=== PATIENT | female | born 1990 | race Caucasian/White ===

== ENCOUNTER → 2017-02-16 | Outpatient (CLI) | payer OTHER ==
[2017-02-16 08:05] LABS: BLOOD UREA NITROGEN 14 mg/dL (7-18)
[2017-02-16 08:12] LABS: HEMOGLOBIN 14.7 g/dL (11.7-16.4)
[2017-02-16 08:32] LABS: ASPARTATE AMINO TRANSFERASE 8 U/L (15-37)
[2017-02-17 11:06] LABS: THYROGLOBULIN AB <1.0 IU/mL (0.0-0.9); THYROID PEROXIDASE (TPO) AB 21 IU/mL (0-34)
== END | disposition home or self-care (01) ==
LOC: LAB 07:26
PROVIDERS: ATTEND Obstetrics & Gynecology
DX: F41.1 Generalized anxiety disorder (principal); Z20.2 Contact with and (suspected) exposure to infections with a predominantly sexual mode of transmission; E34.9 Endocrine disorder, unspecified; N94.3 Premenstrual tension syndrome; E78.5 Hyperlipidemia, unspecified; R53.83 Other fatigue; R10.9 Unspecified abdominal pain; E55.9 Vitamin D deficiency, unspecified; Z79.899 Other long term (current) drug therapy
CPT/HCPCS: 36415; 80053; 80061; 82150; 82306; 82533; 82607; 82627; 82670; 82746; 83001; 83002; 83036; 83525; 83690; 84144; 84439; 84443; 84481; 85025; 86376; 86696; 86800

== ENCOUNTER → 2017-03-15 | Outpatient (CLI) | payer OTHER | END | disposition home or self-care (01) | LOC: CFH 08:34 | PROVIDERS: ATTEND Physician Assistant Medical | DX: N93.0 Postcoital and contact bleeding (principal); R11.0 Nausea; N39.0 Urinary tract infection, site not specified | CPT/HCPCS: 76700; 76830 ==

== ENCOUNTER 2017-05-26 06:55 | Day surgery (SDC) | payer OTHER ==
[~2017-05-26] VITALS: Ht 160 cm; Wt 75.0 kg
[~2017-05-26 06:55] MED LIST: AMOX1TAB64 PO; CETI10TA18 PO; LORA0.5T PO; ONDA4TAB13 SL; PANT40TA5 PO; SERT25TA PO
[2017-05-26] MEDS ORDERED: LACTATED RINGERS 1,000 ML IV SCH (07:22)
[2017-05-26 07:27] VITALS: BP 120/86
[2017-05-26] MEDS ORDERED: LIDOCAINE 1%, 2ML ONE (07:46)
[2017-05-26] MEDS ORDERED: LIDOCAINE 1%, 2ML SQ PRN (08:00)
[2017-05-26] MEDS ORDERED: MIDAZOLAM 1 MG/ML, 2ML ONE (08:00)
[2017-05-26] MEDS ORDERED: FENTANYL PF 250 MCG/5ML ONE (08:00)
[2017-05-26] MEDS ORDERED: THROMBIN 5,000 UNIT VIAL TP ONE (08:20)
[2017-05-26] MEDS ORDERED: BUPIVACAINE/PF 0.5% ONE (08:20)
[2017-05-26] MEDS ORDERED: VASOPRESSIN 20 UNIT/ML, 1ML ONE (08:21)
[2017-05-26] MEDS ORDERED: DEXAMETHASONE 4 MG/ML, 1ML ONE (08:53)
[2017-05-26] MEDS ORDERED: METOCLOPRAMIDE 5 MG/ML, 2ML ONE (08:53)
[2017-05-26] MEDS ORDERED: CEFAZOLIN 1,000 MG ONE (08:53)
[2017-05-26] MEDS ORDERED: SUCCINYLCHOLINE 20 MG/ML, 10ML ONE (08:53)
[2017-05-26] MEDS ORDERED: KETOROLAC 30 MG/1 ML ONE (08:53)
[2017-05-26] MEDS ORDERED: PROPOFOL 10 MG/ML, 20ML ONE (08:53)
[2017-05-26] MEDS ORDERED: ONDANSETRON 2MG/ML, 2ML ONE (08:53)
[2017-05-26] MEDS ORDERED: OXYcodone 5 MG/5 ML ORAL.SOL UDC PO PRN (09:30)
[2017-05-26] MEDS ORDERED: MIDAZOLAM 1 MG/ML, 2ML IV PRN (09:30)
[2017-05-26] MEDS ORDERED: ONDANSETRON 2MG/ML, 2ML IVPush PRN (09:30)
[2017-05-26] MEDS ORDERED: MEPERIDINE/PF 25MG/0.5ML IVPush PRN (09:30)
[2017-05-26] MEDS ORDERED: HYDROmorphone 1 MG/ML, 1ML IV PRN (09:30)
[2017-05-26] MEDS ORDERED: LABETALOL 5MG/ML, 20ML IV PRN (09:30)
[2017-05-26] MEDS ORDERED: ALBUTEROL/IPRATROPIUM 2.5MG/0.5MG, 3 ML NPPB PRN (09:30)
[2017-05-26] MEDS ORDERED: FENTANYL PF 100 MCG/2ML IV PRN (09:30)
[2017-05-26] MEDS ORDERED: ACETAMINOPHEN 325 MG TABLET PO PRN (09:30)
[2017-05-26] MEDS ORDERED: ACETAMINOPHEN 650 MG/20.3 ML UDC ONE (10:09)
[2017-05-26] MEDS ORDERED: PROMETHAZINE 25 MG/ML, 1ML ONE (10:09)
[2017-05-26] MEDS ORDERED: FENTANYL PF 100 MCG/2ML ONE (10:09)
[2017-05-26] MEDS ORDERED: OXYcodone 5 MG/5 ML ORAL.SOL UDC ONE (10:10)
[2017-05-26] MEDS: PROMETHAZINE 25 MG/ML, 1ML IV PRN ×2 (10:14→10:44)
== END 2017-05-26 12:30 ==
LOC: OUT 06:55
PROVIDERS: ATTEND Obstetrics & Gynecology
DX: D06.0 Carcinoma in situ of endocervix (principal); K21.9 Gastro-esophageal reflux disease without esophagitis; J45.909 Unspecified asthma, uncomplicated; I25.10 Atherosclerotic heart disease of native coronary artery without angina pectoris; F41.9 Anxiety disorder, unspecified
CPT/HCPCS: 36415; 57522; 81003; 84703; 85025; 88305; J0330; J0690; J1100; J1885; J2250; J2405; J2550; J2704; J2765; J3010; J3490; J7120

== ENCOUNTER 2017-05-28 15:41 | Emergency (ER) | payer OTHER ==
[~2017-05-28] VITALS: Ht 160 cm; Wt 76.2 kg
[2017-05-28] MEDS ORDERED: BUTA1CAP57 PO (16:18)
[2017-05-28] MEDS ORDERED: CYCL-259 PO (16:18)
[2017-05-28 16:45] LABS: ASPARTATE AMINO TRANSFERASE 12 U/L (15-37); BLOOD UREA NITROGEN 12 mg/dL (7-18)
[2017-05-28 17:22] VITALS: BP 124/86
== END 2017-05-28 17:24 | disposition home or self-care (01) ==
LOC: ED 17:07
DX: K59.00 Constipation, unspecified (principal); Z87.891 Personal history of nicotine dependence
CPT/HCPCS: 36415; 74020; 80053; 81003; 83690; 84703; 85025; 99285

== ENCOUNTER 2017-06-05 12:30 | Emergency (ER) | payer OTHER ==
[~2017-06-05] VITALS: Ht 160 cm; Wt 76.4 kg
[~2017-06-05 12:30] MED LIST changes: +BUTA1CAP57 PO; +CYCL-259 PO
[2017-06-05] MEDS ORDERED: SODIUM CHLORIDE 0.9% 1,000ML IVBOLUS ONE (13:00)
[2017-06-05 13:28] LABS: ASPARTATE AMINO TRANSFERASE 11 U/L (15-37); BLOOD UREA NITROGEN 7 mg/dL (7-18)
[2017-06-05] MEDS ORDERED: SODIUM CHLORIDE FLUSH 10ML SYR IVF ONE (16:00)
[2017-06-05] MEDS ORDERED: OMNIPAQUE 350 MG/ML, 100ML BOTTLE ONE (16:45)
[2017-06-05 17:17] VITALS: BP 113/67
== END 2017-06-05 17:20 | disposition home or self-care (01) ==
LOC: ED 17:10
DX: K62.5 Hemorrhage of anus and rectum (principal); Z87.891 Personal history of nicotine dependence
CPT/HCPCS: 36415; 74177; 80053; 83690; 85025; 96360; 99285; J7030; Q9967

== ENCOUNTER 2017-06-08 06:54 | Day surgery (SDC) | payer OTHER ==
[~2017-06-08] VITALS: Ht 170.2 cm; Wt 76.0 kg
[2017-06-08] MEDS ORDERED: LORA1TAB46 PO (07:28)
[2017-06-08] MEDS ORDERED: FENTANYL PF 100 MCG/2ML ONE (07:48)
[2017-06-08] MEDS ORDERED: MIDAZOLAM 1 MG/ML, 2ML ONE (07:49)
[2017-06-08 08:01] VITALS: BP 135/97
[2017-06-08] MEDS ORDERED: OXYMETAZOLINE NASAL SPRAY 0.05%, 15ML ONE (08:01)
[2017-06-08] MEDS ORDERED: LACTATED RINGERS 1,000 ML IV SCH (08:03)
[2017-06-08] MEDS ORDERED: PROPOFOL 10 MG/ML, 20ML ONE (08:10)
[2017-06-08] MEDS ORDERED: KETOROLAC 30 MG/1 ML ONE (08:10)
[2017-06-08 08:24] LABS: HCG UR OBC PASS
[2017-06-08] MEDS ORDERED: ACETAMINOPHEN 650 MG/20.3 ML UDC ONE (08:33)
[2017-06-08] MEDS ORDERED: ACETAMINOPHEN 325 MG TABLET ONE (08:33)
[2017-06-08] MEDS ORDERED: ACETAMINOPHEN 325 MG TABLET PO PRN (09:00)
== END 2017-06-08 10:20 ==
LOC: OUT 06:54
PROVIDERS: ATTEND Internal Medicine Gastroenterology
DX: K29.50 Unspecified chronic gastritis without bleeding (principal); K21.0 Gastro-esophageal reflux disease with esophagitis; K25.9 Gastric ulcer, unspecified as acute or chronic, without hemorrhage or perforation; J45.909 Unspecified asthma, uncomplicated; F41.9 Anxiety disorder, unspecified
CPT/HCPCS: 43239; 81025; 88305; J1885; J2250; J2704; J3010; J7120

== ENCOUNTER → 2017-08-30 | Outpatient (CLI) | payer OTHER ==
[~2017-08-30] MED LIST changes: +LORA1TAB46 PO
== END | disposition home or self-care (01) ==
LOC: CFH 08:20
PROVIDERS: ATTEND Family Medicine Sports Medicine
DX: M47.896 Other spondylosis, lumbar region (principal); M47.897 Other spondylosis, lumbosacral region; M51.27 Other intervertebral disc displacement, lumbosacral region; M48.07 Spinal stenosis, lumbosacral region
CPT/HCPCS: 72148

== ENCOUNTER → 2017-11-08 | Outpatient (CLI) | payer OTHER ==
[2017-11-08 07:41] LABS: HEMATOCRIT 41.9 % (34.6-47.8); HEMOGLOBIN 14.4 g/dL (11.7-16.4); WHITE BLOOD COUNT 6.1 x10^3/uL (3.4-10)
[2017-11-08 07:49] LABS: BLOOD UREA NITROGEN 10 mg/dL (7-18)
[2017-11-08 07:59] LABS: ASPARTATE AMINO TRANSFERASE 18 U/L (15-37)
== END | disposition home or self-care (01) ==
LOC: LAB 07:26
PROVIDERS: ATTEND Nurse Practitioner Family
DX: Z00.00 Encounter for general adult medical examination without abnormal findings (principal); R53.83 Other fatigue; R79.89 Other specified abnormal findings of blood chemistry
CPT/HCPCS: 36415; 80053; 80061; 84439; 84443; 84481; 85025

== ENCOUNTER 2018-01-06 16:42 | Emergency (ER) | payer OTHER ==
[~2018-01-06] VITALS: Ht 160 cm; Wt 82.9 kg
[2018-01-06 17:29] LABS: MICROSCOPIC NOT IND
[2018-01-06 17:32] LABS: CULTURE INDICATED? NO
[2018-01-06] MEDS ORDERED: KETOROLAC 30 MG/1 ML ONE (17:48)
[2018-01-06] MEDS ORDERED: SODIUM CHLORIDE FLUSH 10ML SYR IVF ONE (18:00)
[2018-01-06] MEDS ORDERED: ONDANSETRON 2MG/ML, 2ML IVPush ONE (18:00)
[2018-01-06] MEDS ORDERED: HYDROmorphone 1 MG/ML, 1ML IVPush PRN (18:00)
[2018-01-06] MEDS ORDERED: KETOROLAC 30 MG/1 ML IVPush ONE (18:00)
[2018-01-06 18:14] LABS: BASOPHILS # (AUTO) 0.04 x10^3/uL (0-0.1); BASOPHILS % (AUTO) 0 % (0-1); EOSINOPHILS # (AUTO) 0.32 x10^3/uL (0-0.4); EOSINOPHILS % (AUTO) 4 % (1-7); LYMPHOCYTES # (AUTO) 2.83 x10^3/uL (1-3.4); LYMPHOCYTES % (AUTO) 33 % (22-44); MD NO; MEAN CORPUSCULAR HEMOGLOBIN 31.9 pg (27.0-34.8); MEAN CORPUSCULAR HGB CONC 34.6 g/dL (32.4-35.8); MEAN PLATELET VOLUME 6.9 fL (7.4-10.4); MONOCYTES # (AUTO) 0.55 x10^3/uL (0.2-0.8); MONOCYTES % (AUTO) 6 % (2-9); NEUTROPHILS # (AUTO) 4.77 x10^3/uL (1.8-6.8); NEUTROPHILS % (AUTO) 56 % (42-75); PLATELET COUNT 246 x10^3/uL (130-400); RED BLOOD COUNT 4.43 x10^6/uL (3.82-5.3); RED CELL DISTRIBUTION WIDTH 12.6 % (9.6-15.2)
[2018-01-06 18:27] LABS: ALBUMIN 4.1 g/dL (3.4-5.0); ANION GAP 5 mmol/L (5-15); CALCIUM 9.3 mg/dL (8.5-10.1); CHLORIDE 107 mmol/L (98-107)
[2018-01-06 18:33] LABS: CREATININE 0.62 mg/dL (0.55-1.02)
[2018-01-06 18:45] VITALS: BP 128/80
== END 2018-01-06 19:29 | disposition home or self-care (01) ==
LOC: ED 17:55
DX: M54.5 Low back pain (principal); F41.9 Anxiety disorder, unspecified; K21.9 Gastro-esophageal reflux disease without esophagitis
CPT/HCPCS: 36415; 74176; 80048; 81003; 82040; 84703; 85025; 96374; 99285; J1885

== ENCOUNTER → 2018-04-05 | Outpatient (CLI) | payer OTHER | END | disposition home or self-care (01) | LOC: CFH 14:40 | PROVIDERS: ATTEND Nurse Practitioner | DX: M50.33 Other cervical disc degeneration, cervicothoracic region (principal); M51.36 Other intervertebral disc degeneration, lumbar region | CPT/HCPCS: 72050; 72110 ==

== ENCOUNTER 2018-04-30 07:49 | Emergency (ER) | payer OTHER ==
[~2018-04-30] VITALS: Ht 162.6 cm; Wt 84.6 kg
[2018-04-30] MEDS ORDERED: IBUPROFEN 200 MG TABLET PO ONE (08:30)
[2018-04-30] MEDS ORDERED: ACETAMINOPHEN 325 MG TABLET PO ONE (08:30)
[2018-04-30] MEDS ORDERED: ACETAMINOPHEN 325 MG TABLET ONE (08:45)
[2018-04-30] MEDS ORDERED: IBUPROFEN 200 MG TABLET ONE (08:45)
[2018-04-30 08:52] VITALS: BP 122/64
== END 2018-04-30 09:37 | disposition home or self-care (01) ==
LOC: ED 09:31
DX: J20.8 Acute bronchitis due to other specified organisms (principal); J31.0 Chronic rhinitis; J02.9 Acute pharyngitis, unspecified; J45.909 Unspecified asthma, uncomplicated
CPT/HCPCS: 71046; 99284

== ENCOUNTER → 2018-05-09 | Outpatient (CLI) | payer OTHER | END | disposition home or self-care (01) | LOC: CFH 09:44 | PROVIDERS: ATTEND Internal Medicine Cardiovascular Disease | DX: J45.909 Unspecified asthma, uncomplicated (principal) | CPT/HCPCS: 93306 ==

== ENCOUNTER 2018-06-25 13:15 | Emergency (ER) | payer OTHER ==
[~2018-06-25] VITALS: Ht 162.6 cm; Wt 84.0 kg
[2018-06-25] MEDS ORDERED: SODIUM CHLORIDE 0.9% 1,000 ML IV ONE (13:24)
[2018-06-25] MEDS ORDERED: MECLIZINE CHEWABLE 25 MG TAB PO ONE (13:30)
[2018-06-25] MEDS ORDERED: MECLIZINE CHEWABLE 25 MG TAB ONE (14:35)
[2018-06-25 14:41] LABS: MICROSCOPIC NOT IND
[2018-06-25 14:45] LABS: BASOPHILS # (AUTO) 0.04 x10^3/uL (0-0.1); BASOPHILS % (AUTO) 1 % (0-1); EOSINOPHILS % (AUTO) 5 % (1-7); LYMPHOCYTES # (AUTO) 3.33 x10^3/uL (1-3.4); LYMPHOCYTES % (AUTO) 40 % (22-44); MD NO; MEAN CORPUSCULAR HEMOGLOBIN 31.5 pg (27.0-34.8); MEAN CORPUSCULAR HGB CONC 34.6 g/dL (32.4-35.8); MEAN PLATELET VOLUME 6.9 fL (7.4-10.4); MONOCYTES % (AUTO) 7 % (2-9); NEUTROPHILS % (AUTO) 48 % (42-75); PLATELET COUNT 252 x10^3/uL (130-400); RED BLOOD COUNT 4.71 x10^6/uL (3.82-5.3); RED CELL DISTRIBUTION WIDTH 13.4 % (9.6-15.2)
[2018-06-25 14:47] LABS: CULTURE INDICATED? NO
[2018-06-25 14:52] LABS: ALANINE AMINOTRANSFERASE 24 U/L (12-78); ALBUMIN 4.1 g/dL (3.4-5.0); ANION GAP 9 mmol/L (5-15); CALCIUM 8.9 mg/dL (8.5-10.1); CHLORIDE 106 mmol/L (98-107); CREATININE 0.82 mg/dL (0.55-1.02)
[2018-06-25 14:56] LABS: ALKALINE PHOSPHATASE 87 U/L (45-117); BILIRUBIN,TOTAL 0.5 mg/dL (0.2-1.0); TOTAL PROTEIN 7.9 g/dL (6.4-8.2)
[2018-06-25] MEDS ORDERED: ONDANSETRON ODT 8 MG PO ONE (16:00)
[2018-06-25] MEDS ORDERED: ONDANSETRON ODT 8 MG ONE (16:14)
[2018-06-25 16:18] VITALS: BP 116/77
== END 2018-06-25 16:31 | disposition home or self-care (01) ==
LOC: ED 15:52
DX: R42 Dizziness and giddiness (principal); K21.9 Gastro-esophageal reflux disease without esophagitis; J45.909 Unspecified asthma, uncomplicated; H53.9 Unspecified visual disturbance; R53.83 Other fatigue
CPT/HCPCS: 36415; 80053; 81003; 84703; 85025; 93005; 96360; 96361; 99285; J7030; Q0162

== ENCOUNTER 2018-07-04 17:52 | Emergency (ER) | payer OTHER ==
[~2018-07-04] VITALS: Ht 160 cm; Wt 82.0 kg
[2018-07-04 18:59] LABS: BASOPHILS # (AUTO) 0.06 x10^3/uL (0-0.1); BASOPHILS % (AUTO) 1 % (0-1); EOSINOPHILS # (AUTO) 0.19 x10^3/uL (0-0.4); EOSINOPHILS % (AUTO) 3 % (1-7); LYMPHOCYTES # (AUTO) 3.04 x10^3/uL (1-3.4); LYMPHOCYTES % (AUTO) 43 % (22-44); MD NO; MEAN CORPUSCULAR HEMOGLOBIN 31.5 pg (27.0-34.8); MEAN CORPUSCULAR HGB CONC 34.8 g/dL (32.4-35.8); MEAN CORPUSCULAR VOLUME 90.4 fL (80-100); MEAN PLATELET VOLUME 6.9 fL (7.4-10.4); MONOCYTES # (AUTO) 0.57 x10^3/uL (0.2-0.8); MONOCYTES % (AUTO) 8 % (2-9); NEUTROPHILS # (AUTO) 3.23 x10^3/uL (1.8-6.8); NEUTROPHILS % (AUTO) 46 % (42-75); PLATELET COUNT 293 x10^3/uL (130-400); RED BLOOD COUNT 4.85 x10^6/uL (3.82-5.3); RED CELL DISTRIBUTION WIDTH 13.1 % (9.6-15.2)
[2018-07-04 19:07] LABS: ANION GAP 6 mmol/L (5-15); CALCIUM 9.6 mg/dL (8.5-10.1); CHLORIDE 107 mmol/L (98-107); CREATININE 0.81 mg/dL (0.55-1.02)
[2018-07-04 19:08] LABS: ALANINE AMINOTRANSFERASE 24 U/L (12-78); ALBUMIN 4.3 g/dL (3.4-5.0)
[2018-07-04 19:12] LABS: ALKALINE PHOSPHATASE 85 U/L (45-117); BILIRUBIN,TOTAL 0.3 mg/dL (0.2-1.0)
[2018-07-04] MEDS ORDERED: OMNIPAQUE 350 MG/ML, 100ML BOTTLE ONE (20:30)
[2018-07-04] MEDS ORDERED: DIPHENHYDRAMINE 50 MG/ML, 1ML ONE (20:39)
[2018-07-04] MEDS ORDERED: METOCLOPRAMIDE 5 MG/ML, 2ML ONE (20:39)
[2018-07-04] MEDS ORDERED: SODIUM CHLORIDE 0.9% 1,000ML IVBOLUS ONE (21:00)
[2018-07-04] MEDS ORDERED: METOCLOPRAMIDE 5 MG/ML, 2ML IVPush ONE (21:00)
[2018-07-04] MEDS ORDERED: DIPHENHYDRAMINE 50 MG/ML, 1ML IVPush ONE (21:00)
[2018-07-04] MEDS ORDERED: SODIUM CHLORIDE FLUSH 10ML SYR IVF ONE (21:00)
[2018-07-04] MEDS ORDERED: LORazepam 2 MG/ML, 1ML ONE (21:11)
[2018-07-04] MEDS ORDERED: LORazepam 2 MG/ML, 1ML IVPush STA (21:14)
[2018-07-04] MEDS ORDERED: LORazepam 2 MG/ML, 1ML IVPush ONE (21:30)
[2018-07-04 22:26] VITALS: BP 117/71
== END 2018-07-04 22:28 | disposition home or self-care (01) ==
LOC: ED 20:22
DX: G43.019 Migraine without aura, intractable, without status migrainosus (principal); J45.909 Unspecified asthma, uncomplicated; G89.29 Other chronic pain; M54.5 Low back pain; K21.9 Gastro-esophageal reflux disease without esophagitis; R42 Dizziness and giddiness
CPT/HCPCS: 36415; 70450; 70498; 80053; 84703; 85025; 96361; 96374; 96375; 99285; J1200; J2060; J2765; J7030; Q9967

== ENCOUNTER → 2018-08-27 | Outpatient (CLI) | payer OTHER | END | disposition home or self-care (01) | LOC: CARD 08:01 | PROVIDERS: ATTEND Psychiatry & Neurology Neurology | DX: R56.9 Unspecified convulsions (principal) | CPT/HCPCS: 95819 ==

== ENCOUNTER → 2018-08-31 | Outpatient (CLI) | payer OTHER ==
[~2018-08-31] MED LIST changes: +GADOBUTROL 10 MMOL/10 ML PFS ONE
== END | disposition home or self-care (01) ==
LOC: RAD 12:34
PROVIDERS: ATTEND Nurse Practitioner
DX: M50.33 Other cervical disc degeneration, cervicothoracic region (principal); M47.26 Other spondylosis with radiculopathy, lumbar region; R42 Dizziness and giddiness
CPT/HCPCS: 70553; 72125; A9585

== ENCOUNTER → 2018-12-17 | Outpatient (CLI) | payer OTHER ==
[~2018-12-17] MED LIST changes: -GADOBUTROL 10 MMOL/10 ML PFS ONE
== END | disposition home or self-care (01) ==
LOC: CFH 07:27
PROVIDERS: ATTEND Nurse Practitioner
DX: M47.26 Other spondylosis with radiculopathy, lumbar region (principal); M51.16 Intervertebral disc disorders with radiculopathy, lumbar region
CPT/HCPCS: 72148

== ENCOUNTER → 2019-03-18 | Outpatient (CLI) | payer OTHER ==
[2019-03-18 07:50] LABS: BASOPHILS # (AUTO) 0.04 x10^3/uL (0-0.1); BASOPHILS % (AUTO) 1 % (0-1); EOSINOPHILS # (AUTO) 0.32 x10^3/uL (0-0.4); EOSINOPHILS % (AUTO) 6 % (1-7); LYMPHOCYTES # (AUTO) 1.97 x10^3/uL (1-3.4); LYMPHOCYTES % (AUTO) 35 % (22-44); MD NO; MEAN CORPUSCULAR HEMOGLOBIN 30.4 pg (27.0-34.8); MEAN CORPUSCULAR HGB CONC 33.7 g/dL (32.4-35.8); MEAN CORPUSCULAR VOLUME 90.5 fL (80-100); MEAN PLATELET VOLUME 6.6 fL (7.4-10.4); MONOCYTES # (AUTO) 0.41 x10^3/uL (0.2-0.8); MONOCYTES % (AUTO) 7 % (2-9); NEUTROPHILS # (AUTO) 2.85 x10^3/uL (1.8-6.8); NEUTROPHILS % (AUTO) 51 % (42-75); PLATELET COUNT 261 x10^3/uL (130-400); RED BLOOD COUNT 4.56 x10^6/uL (3.82-5.3); RED CELL DISTRIBUTION WIDTH 12.3 % (9.6-15.2)
[2019-03-18 07:57] LABS: ALANINE AMINOTRANSFERASE 32 U/L (12-78); ALBUMIN 3.9 g/dL (3.4-5.0); ANION GAP 6 mmol/L (5-15); CHLORIDE 110 mmol/L (98-107); CREATININE 0.68 mg/dL (0.55-1.02)
[2019-03-18 08:06] LABS: CULTURE INDICATED? YES; MICROSCOPIC AUTO
[2019-03-18 08:22] LABS: ALKALINE PHOSPHATASE 66 U/L (45-117); BILIRUBIN,TOTAL 0.3 mg/dL (0.2-1.0); CHOL/HDL RATIO 3.4; CHOLESTEROL, TOTAL 177 mg/dL (140-239); FOLATE LEVEL 17.6 ng/mL (3.1-17.5); FREE T4 (FREE THYROXINE) 0.86 ng/dL (0.76-1.46); HDL CHOL % 29 % (28-40); HDL CHOLESTEROL (DIRECT) 52 mg/dL (40-60); LDL CHOLESTEROL,CALCULATED 94 mg/dL (54-169); LDL/HDL RATIO 1.8 (0.5-3.0); TOTAL PROTEIN 6.8 g/dL (6.4-8.2); TRIGLYCERIDES 154 mg/dL (50-200); VLDL CHOLESTEROL 31 mg/dL (0-25)
[2019-03-18 08:33] LABS: HEMOGLOBIN A1C 5.2 % (4.2-6.3)
[2019-03-18 10:52] LABS: HCT (SEDRATE) 41.2 % (34.6-47.8)
== END | disposition home or self-care (01) ==
LOC: LAB 07:17
PROVIDERS: ATTEND Registered Nurse
DX: G43.709 Chronic migraine without aura, not intractable, without status migrainosus (principal); G62.9 Polyneuropathy, unspecified
CPT/HCPCS: 36415; 80053; 80061; 81001; 82306; 82607; 82746; 83036; 84100; 84439; 84443; 85025; 85651; 86038; 86592; 87086

== ENCOUNTER 2019-03-27 06:39 | Emergency (ER) | payer OTHER ==
[~2019-03-27] VITALS: Ht 162.6 cm; Wt 88.4 kg
--- NOTE | 2019-03-27 06:52 | NUR ---
FIRST CONTACT WITH PT. SIRISHAN. Pt c/o pain with urination, foul odor to urine, and LLQ pelvic pain. Pt states, "it feels like something is ripping. I took a [place] for the pain. I have chronic pain." ANGELI. Pt resting on gurney. Call light within reach. ED MD resident at bedside. Pt provided urine sample. UA sent. 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
--- NOTE | 2019-03-27 06:56 | NUR ---
Pt states, "I have had increase in frequency for two weeks."
[2019-03-27 07:04] LABS: HCG UR SG 1.014 (1.003-1.030); MICROSCOPIC NOT IND
[2019-03-27 07:12] LABS: CULTURE INDICATED? NO
--- NOTE | 2019-03-27 07:39 | NUR ---
LATE NOTE ENTRY FOR 0735: ED RN assist and [place] ED MD resident with pelvic exam. Specimens collected and sent to lab. Pt denies needs at this time. Pt aware of plan of care. Pt states verbal understanding. NADN. Call light within reach.
[2019-03-27 07:51] LABS: WET PREP WBCS MODERATE (FEW)
[2019-03-27 07:52] LABS: CLUE CELLS NONE SEEN (NONE SEEN)
--- NOTE | 2019-03-27 08:16 | NUR ---
[facility] All safety measures in place.
--- NOTE | 2019-03-27 08:51 | NUR ---
[facility] ANGELI. all safety measures in place.
--- NOTE | 2019-03-27 08:57 | NUR ---
Pt states, "I can't stop peeing. I have gone to the bathroom so many times since I have been here. The inside during the ultrasound didn't hurt, the outside did. My pain is about a 7." Pt conencted to NIBP and continous pulse ox and is sitting on [employer] playing on cell phone. NADN. No needs expressed. Pt has call light within reach.
[2019-03-27 09:31] VITALS: BP 112/74
--- NOTE | 2019-03-27 09:31 | NUR ---
Patient given discharge instructions and they have confirmed that they understand the instructions. Patient ambulatory with steady gait. Pt left with d/c paperwork, prescription, and all personal belongings.
== END 2019-03-27 09:34 | disposition home or self-care (01) ==
LOC: ED 06:59
DX: R10.2 Pelvic and perineal pain (principal); R50.9 Fever, unspecified
CPT/HCPCS: 76856; 81003; 81025; 87210; 87491; 87591; 87808; 99284

== ENCOUNTER 2019-06-27 12:40 | Emergency (ER) | payer OTHER ==
[~2019-06-27] VITALS: Ht 162.6 cm; Wt 88.8 kg
--- NOTE | 2019-06-27 12:54 | NUR ---
triage: pt c/o palpitations and dizziess for 2 hours. states that she has a hx of anxiety but this feels different. EKG in triage
--- NOTE | 2019-06-27 13:29 | NUR ---
US AT BEDSIDE
[2019-06-27] MEDS ORDERED: LORazepam 2 MG/ML, 1ML IVPush ONE (13:30)
[2019-06-27] MEDS ORDERED: SODIUM CHLORIDE 0.9% 1,000ML IVBOLUS ONE ×2 (13:30→15:30)
[2019-06-27] MEDS ORDERED: SODIUM CHLORIDE FLUSH 10ML SYR IVF ONE (13:30)
[2019-06-27 13:33] LABS: BASOPHILS # (AUTO) 0.05 x10^3/uL (0-0.1); BASOPHILS % (AUTO) 1 % (0-1); EOSINOPHILS # (AUTO) 0.32 x10^3/uL (0-0.4); EOSINOPHILS % (AUTO) 4 % (1-7); LYMPHOCYTES # (AUTO) 3.39 x10^3/uL (1-3.4); LYMPHOCYTES % (AUTO) 39 % (22-44); MD NO; MEAN CORPUSCULAR HEMOGLOBIN 30.3 pg (27.0-34.8); MEAN CORPUSCULAR HGB CONC 33.9 g/dL (32.4-35.8); MEAN CORPUSCULAR VOLUME 89.3 fL (80-100); MONOCYTES # (AUTO) 0.44 x10^3/uL (0.2-0.8); MONOCYTES % (AUTO) 5 % (2-9); NEUTROPHILS # (AUTO) 4.51 x10^3/uL (1.8-6.8); NEUTROPHILS % (AUTO) 52 % (42-75); PLATELET COUNT 280 x10^3/uL (130-400); RED BLOOD COUNT 4.81 x10^6/uL (3.82-5.3); RED CELL DISTRIBUTION WIDTH 13.2 % (9.6-15.2)
[2019-06-27] MEDS ORDERED: LORazepam 2 MG/ML, 1ML ONE (13:33)
[2019-06-27 13:46] LABS: ALBUMIN 3.8 g/dL (3.4-5.0); ANION GAP 6 mmol/L (5-15); CALCIUM 8.8 mg/dL (8.5-10.1); CHLORIDE 108 mmol/L (98-107)
[2019-06-27 13:49] LABS: ALANINE AMINOTRANSFERASE 19 U/L (12-78); ALKALINE PHOSPHATASE 89 U/L (45-117); BILIRUBIN,TOTAL 0.7 mg/dL (0.2-1.0); CREATININE 0.82 mg/dL (0.55-1.02); TOTAL PROTEIN 7.4 g/dL (6.4-8.2)
--- NOTE | 2019-06-27 13:49 | NUR ---
US DONE PIV STARTED- THEN MEDICATED PER EMAR
[2019-06-27 14:46] LABS: MICROSCOPIC INDICATED
--- NOTE | 2019-06-27 15:04 | NUR ---
IVF COMPLETE-HR REMAIN 115-120 PATIENT REPORTS ATIVAN HELPED ANXIETY IMPROVE TO 5/10 FOR 8/10 PROVIDER TO BEDSIDE. TO ADMIN 2ND 1L NS BOLUS/CHECK TSH
[2019-06-27 15:09] LABS: CULTURE INDICATED? YES
--- NOTE | 2019-06-27 15:59 | NUR ---
REPORT TO KUSUM CHIU
[2019-06-27 16:35] VITALS: BP 123/83
== END 2019-06-27 16:37 | disposition home or self-care (01) ==
LOC: ED 13:48
DX: R00.2 Palpitations (principal); R00.0 Tachycardia, unspecified; K21.9 Gastro-esophageal reflux disease without esophagitis; F41.1 Generalized anxiety disorder
CPT/HCPCS: 36415; 71045; 80053; 81001; 84443; 84703; 85025; 85379; 87086; 93005; 93970; 96361; 96374; 99284; J2060; J7030

== ENCOUNTER 2019-10-10 09:15 | Emergency (ER) | payer OTHER ==
[~2019-10-10] VITALS: Ht 162.6 cm; Wt 89.2 kg
[2019-10-10 09:18] VITALS: BP 146/86
[2019-10-10 09:42] LABS: MICROSCOPIC AUTO
[2019-10-10 09:47] LABS: CULTURE INDICATED? YES
[2019-10-10 09:58] LABS: BASOPHILS # (AUTO) 0.04 x10^3/uL (0-0.1); BASOPHILS % (AUTO) 0 % (0-1); EOSINOPHILS # (AUTO) 0.29 x10^3/uL (0-0.4); EOSINOPHILS % (AUTO) 3 % (1-7); LYMPHOCYTES # (AUTO) 2.16 x10^3/uL (1-3.4); LYMPHOCYTES % (AUTO) 25 % (22-44); MD NO; MEAN CORPUSCULAR HEMOGLOBIN 30.8 pg (27.0-34.8); MEAN CORPUSCULAR HGB CONC 33.8 g/dL (32.4-35.8); MEAN CORPUSCULAR VOLUME 91.2 fL (80-100); MEAN PLATELET VOLUME 6.1 fL (7.4-10.4); MONOCYTES % (AUTO) 6 % (2-9); NEUTROPHILS # (AUTO) 5.77 x10^3/uL (1.8-6.8); NEUTROPHILS % (AUTO) 66 % (42-75); PLATELET COUNT 289 x10^3/uL (130-400); RED BLOOD COUNT 4.91 x10^6/uL (3.82-5.3); RED CELL DISTRIBUTION WIDTH 12.3 % (9.6-15.2)
[2019-10-10 10:01] LABS: ALBUMIN 4.3 g/dL (3.4-5.0); ANION GAP 5 mmol/L (5-15); CALCIUM 9.4 mg/dL (8.5-10.1); CHLORIDE 107 mmol/L (98-107)
[2019-10-10 10:05] LABS: CREATININE 0.75 mg/dL (0.55-1.02)
--- NOTE | 2019-10-10 10:39 | NUR ---
UPON DISCHARGE PT REQUESTING TO FILE COMPLAINT AGAINST PA WHO EXAMINED HER IN TRIAGE SHE STATES HER BACK WAS POSSIBLY FURTHER HURT DURING EXAM OF LEG. PT STATES SHE IS TO HAVE BACK SURGERY SOON AND IS WORRIED THERE IS FURTHER DAMAGE. ED CHARGE, DIALYSIS TECHNICIAN, FLAQUITO AND NOTIFIED. MD TO BEDSIDE FOR FURTHER EVALUATION AND DISCUSSION WITH MD. PT TO BE DISCHARGED.
--- NOTE | 2019-10-10 10:43 | NUR ---
PT AMBULATED TO DISCHARGED DESK FROM ROOM 23 WITH STEADY GAIT
== END 2019-10-10 10:44 | disposition home or self-care (01) ==
LOC: ED 10:33
DX: N30.01 Acute cystitis with hematuria (principal)
CPT/HCPCS: 36415; 80048; 81001; 82040; 84703; 85025; 87077; 87086; 87186; 99283

== ENCOUNTER → 2020-01-10 | Outpatient (CLI) | payer OTHER ==
[~2020-01-10] MED LIST changes: +ALBU18HF INH; +GABA-826 PO; +METO50TA82 PO; +QUET100T4 PO; +SERT100T32 PO
[2020-01-10 15:34] LABS: MICROSCOPIC NOT IND
[2020-01-10 15:38] LABS: CULTURE INDICATED? NO
[2020-01-10 15:52] LABS: BASOPHILS # (AUTO) 0.04 x10^3/uL (0-0.1); BASOPHILS % (AUTO) 1 % (0-1); EOSINOPHILS # (AUTO) 0.28 x10^3/uL (0-0.4); EOSINOPHILS % (AUTO) 5 % (1-7); LYMPHOCYTES # (AUTO) 2.73 x10^3/uL (1-3.4); LYMPHOCYTES % (AUTO) 43 % (22-44); MD NO; MEAN CORPUSCULAR HEMOGLOBIN 30.7 pg (27.0-34.8); MEAN CORPUSCULAR HGB CONC 34.2 g/dL (32.4-35.8); MEAN CORPUSCULAR VOLUME 89.9 fL (80-100); MEAN PLATELET VOLUME 6.2 fL (7.4-10.4); MONOCYTES # (AUTO) 0.48 x10^3/uL (0.2-0.8); MONOCYTES % (AUTO) 8 % (2-9); NEUTROPHILS # (AUTO) 2.78 x10^3/uL (1.8-6.8); NEUTROPHILS % (AUTO) 44 % (42-75); PLATELET COUNT 253 x10^3/uL (130-400); RED CELL DISTRIBUTION WIDTH 12.5 % (9.6-15.2)
[2020-01-10 16:00] LABS: ANION GAP 6 mmol/L (5-15); CALCIUM 8.8 mg/dL (8.5-10.1); CHLORIDE 111 mmol/L (98-107)
[2020-01-10 16:01] LABS: CREATININE 0.75 mg/dL (0.55-1.02)
[2020-01-10 16:06] LABS: INTERNATIONAL NORMALIZED RATIO 0.95 (0.93-1.1); PROTHROMBIN TIME 10.1 Seconds (9.6-11.5)
== END | disposition home or self-care (01) ==
LOC: STAR 14:23
PROVIDERS: ATTEND Neurological Surgery
DX: Z01.818 Encounter for other preprocedural examination (principal); M48.061 Spinal stenosis, lumbar region without neurogenic claudication; M54.16 Radiculopathy, lumbar region; M43.16 Spondylolisthesis, lumbar region
CPT/HCPCS: 36415; 71046; 72110; 80048; 81003; 85025; 85610; 85730; 93005

== ENCOUNTER → 2020-01-22 | Day surgery (SDC) | payer OTHER ==
[2020-01-10 15:39] VITALS: BP 119/83
[~2020-01-22] VITALS: Ht 160 cm; Wt 89.0 kg
[~2020-01-22] MED LIST changes: +ACETAMINOPHEN 500 MG TABLET ONE; +ACETAMINOPHEN 500 MG TABLET PO ONE; +ALBUTEROL SULFATE 2.5 MG/3 ML NPPB PRN; +BACITRACIN 50,000 UNIT ONE; +BUPIVACAINE/PF 0.25% ONE; +BUPIVACAINE/PF 0.5% ONE; +CEFAZOLIN 1,000 MG ONE; +CYCLOBENZAPRINE 10 MG TABLET ONE; +CYCLOBENZAPRINE 10 MG TABLET PO PRN; +DEXAMETHASONE 4 MG/ML, 1ML ONE; +DIAZEPAM 5 MG/ML, 2ML IVPush PRN; +DIAZEPAM 5 MG/ML, 2ML ONE; +EPHEDRINE 50 MG/ML, 1ML ONE; +EPINEPHRINE 1 MG/ML, 1ML ONE; +FENTANYL PF 100 MCG/2ML ONE; +FENTANYL PF 250 MCG/5ML ONE; +GABAPENTIN 300 MG CAPSULE PO ONE; +GLYCOPYRROLATE 0.2MG/1ML, 5ML ONE; +HYDROmorphone 2 MG/ML, 1ML IVPush PRN; +KETOROLAC 30 MG/1 ML ONE; +LACTATED RINGERS 1,000 ML IV SCH; +LIDOCAINE-MPF 2% ,5ML ONE; +LORazepam 2 MG/ML, 1ML IVPush PRN; +MEPERIDINE/PF 25MG/ML,1ML ONE; +MIDAZOLAM 1 MG/ML, 2ML ONE; +NEOSTIGMINE 1 MG/ML, 10ML ONE; +ONDANSETRON 2MG/ML, 2ML IV PRN; +ONDANSETRON 2MG/ML, 2ML ONE; +OXYcodone 5 MG/5 ML ORAL.SOL UDC ONE; +PROPOFOL 10 MG/ML, 20ML ONE; +ROCURONIUM 10MG/ML,5ML ONE; +SCOPOLAMINE 1MG PATCH TD ONE; +SCOPOLAMINE 1MG PATCH TD SCH; +SUCCINYLCHOLINE 20 MG/ML, 10ML ONE; +VANCOMYCIN 1,000 MG ONE; +hydrALAzine 20 MG/ML, 1ML IV PRN; +methylPREDNISolone SOD SUCC 125 MG/2 ML ONE
[2020-01-22 07:26] LABS: HCG UR SG 1.019 (1.003-1.030)
[2020-01-22] MEDS: OXYcodone 5 MG/5 ML ORAL.SOL UDC PO PRN ×3 (09:44→13:21)
[2020-01-22] MEDS: MEPERIDINE/PF 25MG/ML,1ML IVPush PRN ×2 (09:44→10:55)
[2020-01-22] MEDS: FENTANYL PF 100 MCG/2ML IV PRN ×2 (10:05→10:10)
== END | disposition home or self-care (01) ==
LOC: OUT 05:58
PROVIDERS: ATTEND Neurological Surgery
DX: M51.16 Intervertebral disc disorders with radiculopathy, lumbar region (principal); Z72.89 Other problems related to lifestyle
CPT/HCPCS: 63030; 72100; 81025; J0171; J0330; J0690; J1100; J1885; J2175; J2250; J2405; J2704; J2710; J2930; J3010; J3360; J3490; J7120; J3370